=== PATIENT | female | born 1995 | race Caucasian/White ===

== ENCOUNTER 2020-09-12 06:38 | Emergency (ER) | payer MEDICAID ==
[~2020-09-12] VITALS: Ht 157.5 cm; Wt 54.4 kg
--- NOTE | 2020-09-12 06:57 | NUR ---
PRESENTED TO THE ER FOR C/O MID STERNAL CHEST TIGHTNESS FOR THE PAST FEW HOURS, + SOB, +LIGHTHEADEDNESS, SATTING 98-100% ON R/A. 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 PT WAS PLACED ON A MONITOR IN BED 2. VSS. WILL CONT TO MONITOR ,
[2020-09-12] MEDS ORDERED: MORPHINE SULFATE INJ 2 MG/ML DISP.SYRIN ONE (07:24)
[2020-09-12] MEDS ORDERED: ONDANSETRON HCL/PF 4 MG/2 ML VIAL ONE (07:24)
[2020-09-12] MEDS ORDERED: MORPHINE SULFATE INJ 2 MG/ML DISP.SYRIN IV ONE (07:30)
[2020-09-12] MEDS ORDERED: ONDANSETRON HCL/PF - ER 4 MG/2 ML VIAL IV ONE (07:30)
--- NOTE | 2020-09-12 07:37 | NUR ---
IV LINE ESTABLISHED, BLOOD DRAWN AND SENT TO LAB.
[2020-09-12 07:40] LABS: BASOPHILS % (AUTO) 0.6 % (0.0-2.0); EOSINOPHILS % (AUTO) 0.6 % (0.0-6.0); HEMATOCRIT 38 % (33-45); HEMOGLOBIN 12.8 g/dL (11.5-14.8); LYMPHOCYTES # (AUTO) 1.6 /CMM (0.8-4.8); LYMPHOCYTES % (AUTO) 21.9 % (20.0-44.0); MEAN CORPUSCULAR HGB CONC 34 g/dl (31.0-36.0); MEAN CORPUSCULAR VOLUME 97 fL (82-100); MONOCYTES # (AUTO) 0.8 /CMM (0.1-1.30); MONOCYTES % (AUTO) 11.1 % (2.0-12.0); NEUTROPHILS # (AUTO) 4.9 /CMM (1.8-8.9); NEUTROPHILS % (AUTO) 65.8 % (43.0-81.0); PLATELET COUNT (AUTO) 217 /CMM (150-450); RED BLOOD CELL COUNT(AUTO) 3.89 MIL/uL (4.0-5.2); WHITE BLOOD COUNT (AUTO) 7.5 K/uL (4.3-11.0)
[2020-09-12 07:46] LABS: CALCIUM, SERUM 8.5 mg/dL (8.5-10.1); CARBON DIOXIDE 26 mmol/L (21-32); CHLORIDE 101 mmol/L (98-107); CREATININE 0.6 mg/dL (0.6-1.3); GLUCOSE 96 mg/dL (74-106); POTASSIUM 3.6 mmol/L (3.5-5.1); SODIUM SERUM 138 mmol/L (136-145); UREA NITROGEN, BLOOD 9 mg/dL (7-18)
[2020-09-12 07:59] LABS: NT-PRO BNP 82 pg/mL (0-125)
[2020-09-12] MEDS ORDERED: IOHEXOL-350 100 ML VIAL IV ONE (08:19)
[2020-09-12] MEDS ORDERED: CT SWABBABLE VALVE TRANS SET 1 EA INFUS.SET MC ONE (08:19)
[2020-09-12] MEDS ORDERED: IV NS 0.9% 250 ML IV ONE (08:20)
[2020-09-12] MEDS ORDERED: TRAM-351 PO (09:13)
[2020-09-12] MEDS ORDERED: IBUP-1957 PO (09:13)
--- NOTE | 2020-09-12 09:28 | NUR ---
PATIENT A/OX4. BREATHING EVEN AND UNLABORED, NO SOB NOTED. DENIES PAIN AT THIS TIME. COPIES OF LAB RESULTS AND IMAGES GIVEN TO PATIENT. Patient discharged to home in stable condition. Written and verbal after care instructions given. Patient verbalizes understanding of instruction. IV removed. Catheter intact and site benign. Pressure and 4x4 applied to site. No bleeding noted.
[2020-09-12 09:29] VITALS: BP 116/73
== END 2020-09-12 09:30 | disposition home or self-care (01) ==
LOC: ER 06:38
DX: R07.89 Other chest pain (principal); R09.1 Pleurisy
CPT/HCPCS: 36415; 71045; 71275; 80048; 83880; 84484; 84703; 85025; 85378; 93005 ×3; 96374; 96375; 99285; J2270; J2405 ×2; J7050; Q9967